=== PATIENT | female | born 1940 | race Hispanic/Latino ===

== ENCOUNTER → 2023-01-13 | Outpatient (CLI) | payer MEDICARE ==
[~2023-01-13] MED LIST: GADOTERATE MEGLUMINE 5 MMOL/10 ML VIAL IV ONE
== END | disposition home or self-care (01) ==
LOC: RAH 10:47
PROVIDERS: ATTEND Internal Medicine Hematology & Oncology
DX: R19.00 Intra-abdominal and pelvic swelling, mass and lump, unspecified site (principal); D47.3 Essential (hemorrhagic) thrombocythemia
CPT/HCPCS: 72197; A9575